=== PATIENT | male | born 1965 | race Two or more races ===

== ENCOUNTER 2023-03-26 12:03 | Emergency (ER) | payer SELFPAY ==
[~2023-03-26] VITALS: Ht 167.6 cm; Wt 75.0 kg
[2023-03-26] MEDS ORDERED: ACE3T PO (15:52)
[2023-03-26] MEDS ORDERED: IBUP-1455 PO (15:52)
[2023-03-26 17:03] VITALS: BP 140/87; PULSE 64; RESP 16; O2SAT 99
== END 2023-03-26 17:08 | disposition home or self-care (01) ==
LOC: ER 12:03
DX: S29.012A Strain of muscle and tendon of back wall of thorax, initial encounter (principal); X50.0XXA Overexertion from strenuous movement or load, initial encounter; Y93.89 Activity, other specified; Y92.89 Other specified places as the place of occurrence of the external cause; Y99.8 Other external cause status
CPT/HCPCS: 72070